=== PATIENT | female | born 1965 | race Hispanic/Latino ===

== ENCOUNTER 2022-04-12 15:30 | Emergency (ER) | payer OTHER ==
[2022-04-12] MEDS ORDERED: IBUPROFEN 600 MG TAB PO ONE (21:13)
[2022-04-12] MEDS ORDERED: LIDOCAINE (1%) 10 MG/1 ML VIAL 20 ML MDV INFILTRATI ONE (21:13)
[2022-04-12] MEDS ORDERED: ONDANSETRON 4 MG ODT TAB PO ONE (21:13)
[2022-04-12] MEDS ORDERED: TETANUS,DIPH,PERTUSS(ACELL) VACCINE 0.5 ML SYRINGE IM ONE (21:13)
[2022-04-12] MEDS ORDERED: oxyCODONE /ACETAMINOPHEN 5-325MG TAB PO ONE (21:13)
--- NOTE | 2022-04-12 22:27 | Emergency Department Report ---
- General Chief Complaint: Wound/Laceration Stated Complaint: CUT HAND Source: patient Mode of arrival: Ambulatory Limitations: No Limitations - History of Present Illness Initial Comments: Patient is a 56-year-old female with no past medical history who presents to the ED with complaint of acute onset persistent painful bleeding dorsal left thumb laceration after she accidentally cut her left thumb when cutting meat at home about 6 hours ago. Patient states that the pain is especially worse with any active range of motion of the left thumb. Patient states that she is not up-to-date with her tetanus vaccinations. Patient states that the bleeding is currently controlled on the left thumb laceration. Patient denies nausea, vomiting, fall, numbness and tingling or weakness of left hand or left arm, chest pain or shortness of breath, headache, change in vision or neck pain. -: hour(s) (6) Location: other (left thumb) Extremity Location: Left: Hand (dorsal left thumb) Place: home Patient Tetanus UTD: No (Given during this visit) Context: accidental, sharp object use Associated Symptoms: pain. denies: loss of feeling/numbness, suspect foreign body present, unable to move injured part, weakness followed by dizziness, nausea/vomiting, fever - Related Data Previous Rx's Medication Instructions Recorded Last Taken Type Ibuprofen [Motrin] 800 mg PO Q8HR PRN #30 tablet 04/12/22 Unknown Rx cephALEXin [Keflex] 500 mg PO Q8HR #30 cap 04/12/22 Unknown Rx Allergies Allergy/AdvReac Type Severity Reaction Status Date / Time No Known Allergies Allergy Verified 04/12/22 21:32 ED Review of Systems ROS: Stated complaint: CUT HAND Other details as noted in HPI Constitutional: denies: chills, fever Eyes: denies: eye pain, eye discharge, vision change ENT: denies: ear pain, throat pain Respiratory: denies: cough, shortness of breath, wheezing Cardiovascular: denies: chest pain, palpitations Endocrine: no symptoms reported Gastrointestinal: denies: abdominal pain, nausea, diarrhea Genitourinary: denies: urgency, dysuria, discharge Musculoskeletal: arthralgia (Left thumb pain due to bleeding dorsal left thumb laceration). denies: back pain, joint swelling Skin: other (Bleeding left thumb laceration wound with localized pain). denies: rash, lesions Neurological: denies: headache, weakness, paresthesias Psychiatric: denies: anxiety, depression Hematological/Lymphatic: denies: easy bleeding, easy bruising ED Past Medical Hx - Medications Home Medications: Home Medications Medication Instructions Recorded Confirmed Last Taken Type Ibuprofen [Motrin] 800 mg PO Q8HR PRN #30 tablet 04/12/22 Unknown Rx cephALEXin [Keflex] 500 mg PO Q8HR #30 cap 04/12/22 Unknown Rx ED Physical Exam - General Limitations: No Limitations General appearance: alert, in no apparent distress - Head Head exam: Present: atraumatic, normocephalic, normal inspection - Eye Eye exam: Present: normal appearance, PERRL, EOMI Pupils: Present: normal accommodation - ENT ENT exam: Present: normal exam, normal orophraynx, mucous membranes moist, TM's normal bilaterally, normal external ear exam - Neck Neck exam: Present: normal inspection, full ROM. Absent: tenderness - Respiratory Respiratory exam: Present: normal lung sounds bilaterally. Absent: respiratory distress, wheezes, rhonchi, chest wall tenderness, accessory muscle use, decreased breath sounds - Cardiovascular Cardiovascular Exam: Present: regular rate, normal rhythm, normal heart sounds. Absent: systolic murmur, diastolic murmur, rubs, gallop - GI/Abdominal GI/Abdominal exam: Present: soft, normal bowel sounds. Absent: tenderness, guarding, rebound, hyperactive bowel sounds, hypoactive bowel sounds, organomegaly - Extremities Exam Extremities exam: Present: normal inspection, full ROM, tenderness (Palpable left thumb tenderness due to a bleeding 3 cm laceration wound), normal capillary refill. Absent: pedal edema, joint swelling, calf tenderness - Back Exam Back exam: Present: normal inspection, full ROM. Absent: tenderness, CVA tenderness (R), CVA tenderness (L), muscle spasm, paraspinal tenderness, vertebral tenderness - Neurological Exam Neurological exam: Present: alert, oriented X3, CN II-XII intact, normal gait, reflexes normal - Psychiatric Psychiatric exam: Present: normal affect, normal mood - Skin Skin exam: Present: warm, dry, intact, normal color, other (Bleeding 3 cm laceration wound on dorsal left thumb). Absent: rash ED Course Vital Signs 04/12/22 15:59 Temperature 97.9 F Pulse Rate 79 Respiratory 14 Rate Blood Pressure 135/78 [Right] O2 Sat by Pulse 97 Oximetry - Laceration /Wound Repair Left Dorsal Finger Wound Location: upper extremity (Dorsal left thumb laceration) Wound Length (cm): 3 Wound's Depth, Shape: superficial, irregular, flap Wound Explored: contaminated Irrigated w/ Saline (ccs): 200 Betadine Prep?: Yes Anesthesia: 1% Lidocaine Volume Anesthetic (ccs): 5 Wound Debrided: extensive Wound Repaired With: sutures Suture Size/Type: 4:0, proline Number of Sutures: 9 Layer Closure?: No Sterile Dressing Applied?: Yes Progress: Ear was cleaned extensively with normal saline and Betadine solutions. Lidocaine 1% solution was used to infiltrate the area for anesthesia. When anesthesia was fully achieved, the wound was sutured per protocol using Prolene 4-0 Prolene sutures for a total of 9 sutures. The wound was dressed appropriately and on reevaluation, the left thumb is neurovascularly intact. Patient tolerated the procedure well. Patient was discharged home on medications including pain medicine and antibiotic and advised to follow-up with her primary care physician in 7 to 10 days for reevaluation or return to the ED immediately if symptoms get worse. Patient was also advised to return to the ED or to her primary care physician in 12 to 14 days for suture removal. ED Medical Decision Making - Medical Decision Making This is a 56-year-old female with no past medical history who presents to the ED with complaint of acute onset persistent painful bleeding dorsal left thumb laceration after she accidentally cut her left thumb when cutting meat at home about 6 hours ago. Patient states that the pain is especially worse with any active range of motion of the left thumb. Patient states that she is not up-to-date with her tetanus vaccinations. Patient states that the bleeding is currently controlled on the left thumb laceration. In the ED, patient is alert and oriented x3 and is not in any distress. Patient was treated for pain in the ED. Patient also received booster tetanus vaccinations in the ED during this visit. The left thumb laceration wound was cleaned extensively with normal saline. The left thumb was sutured per protocol using Prolene 4-0 sutures. The wound was then dressed appropriately with 4 x 4 gauzes and Kerlix gauze. Patient was discharged home on pain medication and prophylactic antibiotics and advised to follow-up with her primary care physician in 7 to 10 days for reevaluation. Patient was advised return to the ED immediately if symptoms get worse, otherwise return to the ED or to her primary care physician in 12 to 14 days for suture removal. - Differential Diagnosis Thumb injury; thumb laceration; thumb puncture wound; Critical care attestation.: If time is entered above; I have spent that time in minutes in the direct care of this critically ill patient, excluding procedure time. ED Disposition Clinical Impression: Laceration of left thumb without complication Qualifiers: Encounter type: initial encounter Qualified Code(s): S61.012A - Laceration without foreign body of left thumb without damage to nail, initial encounter Puncture wound of left thumb w/o foreign body w/o damage to nail Qualifiers: Encounter type: initial encounter Qualified Code(s): S61.032A - Puncture wound without foreign body of left thumb without damage to nail, initial encounter Disposition: HOME / SELF CARE / HOMELESS Is pt being admited?: No Does the pt Need Aspirin: No Condition: Stable Instructions: Puncture Wound, [id number], Laceration Care, Adult, [id number], Sutures, [place], or Adhesive Wound Closure, [id number], Sutured Wound Care, [id number] Additional Instructions: [facility] los medicamentos con alimentos, margo muchos lquidos, giovany un seguimiento con [facility] atencin primaria en 7 a 10 zhang para vika reevaluacin. Regrese al servicio de urgencias inmediatamente si los sntomas empeoran. De lo contrario, regrese al servicio de urgencias o a [facility] at[facility] primaria en 12 a 14 zhang para que le retiren las suturas. Prescriptions: cephALEXin [Keflex] 500 mg PO Q8HR #30 cap Ibuprofen [Motrin] 800 mg PO Q8HR PRN #30 tablet PRN Reason: Pain , Severe (7-10) Referrals: DARRIAN FLORES MD [Primary Care Provider] - 7-10 days Time of Disposition: 22:29 Print Language: BULGARIAN
[2022-04-12 23:19] VITALS: BP 142/88
== END 2022-04-12 23:18 | disposition home or self-care (01) ==
LOC: ED 15:30
DX: S61.012A Laceration without foreign body of left thumb without damage to nail, initial encounter (principal); S61.032A Puncture wound without foreign body of left thumb without damage to nail, initial encounter; W26.0XXA Contact with knife, initial encounter; Y93.89 Activity, other specified; Y92.89 Other specified places as the place of occurrence of the external cause; Y99.8 Other external cause status
CPT/HCPCS: 90471; 90715; 99282; J3490; Q0162